=== PATIENT | male | born 1995 | race Native Hawaiian/Other Pacific Islander ===

== ENCOUNTER 2017-04-15 04:38 | Emergency (ER) | payer OTHER ==
[~2017-04-15] VITALS: Ht 182.9 cm; Wt 68.0 kg
[2017-04-15 04:45] VITALS: BP 147/84; TEMP 98.2
== END 2017-04-15 05:58 | disposition home or self-care (01) ==
LOC: ED 04:38
DX: R06.02 Shortness of breath (principal); F41.9 Anxiety disorder, unspecified
CPT/HCPCS: 99281

== ENCOUNTER 2017-04-18 01:43 | Emergency (ER) | payer OTHER ==
[~2017-04-18] VITALS: Ht 182.9 cm; Wt 68.0 kg
[2017-04-18 01:58] VITALS: BP 117/68; TEMP 97.9
== END 2017-04-18 02:27 | disposition home or self-care (01) ==
LOC: ED 01:43
DX: Z72.820 Sleep deprivation (principal)
CPT/HCPCS: 99281